=== PATIENT | female | born 1975 | race Caucasian/White ===

== ENCOUNTER 2016-11-28 21:46 | Emergency (ER) | payer MEDICAID ==
[~2016-11-28] VITALS: Ht 160 cm; Wt 94.3 kg
[2016-11-28 23:24] LABS: BASOPHIL % 0.6 % (0-2); PLATELET COUNT 292 x10^3mcL (130-400)
[2016-11-28 23:27] LABS: RED CELL DISTRIBUTION WIDTH 17.9 % (11.5-14.5)
[2016-11-28 23:40] LABS: CALCIUM 8.2 mg/dL (8.5-10.1); CARBON DIOXIDE 25.4 mmol/L (21-32); CREATININE SERUM 1.1 mg/dL (0.6-1.0); POTASSIUM SERUM 4.2 mmol/L (3.5-5.1)
[2016-11-28 23:54] LABS: ALBUMIN 3.1 g/dL (3.4-5.0); BILIRUBIN TOTAL 0.2 mg/dL (0.20-1.00); T4(THYROXINE) 7.6 ug/dL (4.7-13.3); TOTAL PROTEIN, SERUM 7.3 g/dL (6.4-8.2)
[2016-11-29 00:39] VITALS: BP 142/84
== END 2016-11-29 00:39 | disposition home or self-care (01) ==
LOC: ED 21:46
PROVIDERS: Emergency Medicine
DX: R00.2 Palpitations (principal); R06.02 Shortness of breath; R11.0 Nausea
CPT/HCPCS: 36415